=== PATIENT | male | born 1975 ===

== ENCOUNTER 2021-03-19 17:26 | Emergency (ER) | payer OTHER, BC ==
[2021-03-19 17:43] VITALS: BP 111/69; PULSE 96
[2021-03-19] MEDS ORDERED: Diphtheria,Pertussis(Acell),Tetanus Vaccine 0.5 ML Syringe IM ONE (17:53)
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
== END 2021-03-19 18:09 | disposition home or self-care (01) ==
LOC: MW.ED 17:26
DX: S00.12XA Contusion of left eyelid and periocular area, initial encounter (principal); S00.432A Contusion of left ear, initial encounter; S50.812A Abrasion of left forearm, initial encounter; Z23 Encounter for immunization; V49.49XA Driver injured in collision with other motor vehicles in traffic accident, initial encounter; Y92.410 Unspecified street and highway as the place of occurrence of the external cause
CPT/HCPCS: 90471; 90715; 99283